=== PATIENT | male | born 1990 | race Two or more races ===

== ENCOUNTER 2018-07-30 18:15 | Emergency (ER) | payer SELFPAY ==
--- NOTE | 2018-07-30 18:51 | EDM.PDOC ---
ED HPI GENERAL MEDICAL PROBLEM - General Chief Complaint: Skin Complaint Stated Complaint: INFECTED CUT Time Seen by Provider: 07/30/18 18:20 Source of Information: Reports: Patient History Limitations: Reports: No Limitations - History of Present Illness INITIAL COMMENTS - FREE TEXT/NARRATIVE: HISTORY AND PHYSICAL: History of present illness: Patient is a 28-year-old male who presents to the emergency room with concerns of an infection at a puncture wound to his right index finger. He states the puncture wound occurred approximately 2 weeks ago. Since that time the area appears erythematous and with the appearance that can be drained. He states he has been trying to express drainage out from the site himself, unsuccessful. Tetanus has been updated within the last 5 years. Patient denies any fever, chills, headache, change in vision, syncope or near syncope. Denies any chest pain, back pain, shortness of breath or cough. Denies any abdominal pain, nausea , vomiting, diarrhea, constipation or dysuria. Patient has been eating and drinking appropriately. Review of systems: As per history of present illness and below otherwise all systems reviewed and negative. Past medical history: As per history of present illness and as reviewed below otherwise noncontributory. Surgical history: As per history of present illness and as reviewed below otherwise noncontributory. Social history: See social history for further information Family history: As per history of present illness and as reviewed below otherwise noncontributory. Physical exam: General: Well-developed and well-nourished 28-year-old male. Alert and oriented. Nontoxic appearing and in no acute distress. HEENT: Atraumatic, normocephalic, pupils equal and reactive bilaterally, negative for conjunctival pallor or scleral icterus, mucous membranes moist, trachea midline. No drooling or trismus noted. No meningeal signs. No hot potato voice noted. Lungs: Clear to auscultation, breath sounds equal bilaterally, chest nontender. Heart: S1S2, regular rate and rhythm without overt murmur Abdomen: Soft, nondistended, nontender. Skin: Small localized area of erythema to the right index finger approximately 6 mm. Nonfluctuant. Otherwise skin is intact, warm, dry. No lesions or rashes noted. Extremities: Atraumatic, moves all extremities per self without difficulty or deficits, negative for cords or calf pain. Neurovascular unremarkable. Neuro: Awake, alert, oriented. Cranial nerves II through XII unremarkable. Cerebellum unremarkable. Motor and sensory unremarkable throughout. Exam nonfocal. Notes: Supportive care measures were reviewed and discussed. Voices understanding and is agreeable to plan of care. Denies any further questions or concerns at this time. Diagnostics: None Therapeutics: None Prescription: Keflex Impression: Localized skin infection Plan: 1. Keep the skin clean and dry. Continue to monitor for signs of improvement. 2. Take your antibiotic as prescribed. Tylenol and/or ibuprofen as needed for pain management. 3. Follow-up with your primary caregiver as we discussed. Return to the ED as needed and as discussed. Definitive disposition and diagnosis as appropriate pending reevaluation and review of above. - Related Data Allergies Allergy/AdvReac Type Severity Reaction Status Date / Time No Known Allergies Allergy Verified 07/30/18 18:26 Home Meds: Home Meds cephALEXin [Keflex] 500 mg PO BID 5 Days #10 cap 07/30/18 [Rx] Past Medical History - Past Health History Medical/Surgical History: Denies Medical/Surgical History - Infectious Disease History Infectious Disease History: Reports: Chicken Pox Social & Family History - Family History Family Medical History: Noncontributory - Tobacco Use Smoking Status *Q: Never Smoker - Recreational Drug Use Recreational Drug Use: No ED ROS GENERAL - Review of Systems Review Of Systems: ROS reveals no pertinent complaints other than HPI. ED EXAM, SKIN/RASH Exam: See Below (See dictation) Course - Vital Signs Last Recorded V/S: Last Vital Signs Temp 97.6 F 07/30/18 18:24 Pulse 70 07/30/18 19:03 Resp 18 07/30/18 19:03 BP 129/74 07/30/18 19:03 Pulse Ox 98 07/30/18 19:03 Departure - Departure Time of Disposition: 18:51 Disposition: Home, Self-Care 01 Clinical Impression: Localized infection of skin - Discharge Information Prescriptions: cephALEXin [Keflex] 500 mg PO BID 5 Days #10 cap Instructions: Cellulitis, Adult Referrals: PCP,None [Primary Care Provider] - Forms: ED Department Discharge Additional Instructions: The following information is given to patients seen in the emergency department who are being discharged to home. This information is to outline your options for follow-up care. We provide all patients seen in our emergency department with a follow-up referral. The need for follow-up, as well as the timing and circumstances, are variable depending upon the specifics of your emergency department visit. If you don't have a primary care physician on staff, we will provide you with a referral. We always advise you to contact your personal physician following an emergency department visit to inform them of the circumstance of the visit and for follow-up with them and/or the need for any referrals to a consulting specialist. The emergency department will also refer you to a specialist when appropriate. This referral assures that you have the opportunity for follow-up care with a specialist. All of these measure are taken in an effort to provide you with optimal care, which includes your follow-up. Under all circumstances we always encourage you to contact your private physician who remains a resource for coordinating your care. When calling for follow-up care, please make the office aware that this follow-up is from your recent emergency room visit. If for any reason you are refused follow-up, please contact the [facility] Emergency Department at and asked to speak to the emergency department charge nurse. [facility] [address] [place] [address] [place] [address] 1. Keep the skin clean and dry. Continue to monitor for signs of improvement. 2. Take your antibiotic as prescribed. Tylenol and/or ibuprofen as needed for pain management. 3. Follow-up with your primary caregiver as we discussed. Return to the ED as needed and as discussed.
== END 2018-07-30 19:03 | disposition home or self-care (01) ==
LOC: MW.ED 18:15
DX: L08.9 Local infection of the skin and subcutaneous tissue, unspecified (principal)
CPT/HCPCS: 99282; 99283

== ENCOUNTER 2022-01-16 14:56 | Emergency (ER) | payer BC | END 2022-01-16 16:33 | disposition left against medical advice (07) | LOC: MW.ED 14:56 | DX: Z53.21 Procedure and treatment not carried out due to patient leaving prior to being seen by health care provider (principal) ==

== ENCOUNTER 2022-03-08 20:03 | Emergency (ER) | payer BC ==
[2022-03-08] MEDS ORDERED: Ketorolac 30 MG/ML SDV IM STA (20:14)
[2022-03-08] MEDS ORDERED: oxyCODONE 5 MG Tab PO ONE (20:17)
[2022-03-08] MEDS ORDERED: Ketorolac 30 MG/ML SDV IVPUSH ONE ×2 (20:33→22:21)
[2022-03-08 20:57] LABS: POTASSIUM,K 3.6 mmol/L (3.5-5.1)
[2022-03-08] MEDS ORDERED: Iopamidol 755 MG/ML 500 ML Multipack Bottle IVPUSH STA (21:26)
[2022-03-08] MEDS ORDERED: Orphenadrine 60 MG/2 ML Inj IM ONE (22:21)
[2022-03-08 23:29] LABS: C. TRACHOMATIS BY PCR NOT DETECTED; N. GONORRHOEAE BY PCR NOT DETECTED
== END 2022-03-08 23:43 | disposition home or self-care (01) ==
LOC: MW.ED 20:03
DX: N50.811 Right testicular pain (principal); R10.31 Right lower quadrant pain
CPT/HCPCS: 36415; 74177; 76870; 80053; 81003; 85025; 87491; 87591; 93976; 96372; 96374; 96376; 99284; A9270; J1885; J2360; Q9967

== ENCOUNTER 2022-08-20 20:24 | Emergency (ER) | payer BC ==
[2022-08-20 21:38] LABS: APPEARANCE,URINE CLEAR; BILIRUBIN,URINE NEGATIVE (NEGATIVE); COLOR,URINE YELLOW; GLUCOSE,URINE 100 mg/dL (NEGATIVE); KETONES,URINE NEGATIVE (NEGATIVE); LEUKOCYTE ESTERASE,URINE NEGATIVE (NEGATIVE); NITRITE,URINE POSITIVE (NEGATIVE); OCCULT BLOOD,URINE NEGATIVE (NEGATIVE); PH,URINE 6.5 (5.0-8.0); PROTEIN,URINE TRACE mg/dL (NEGATIVE)
[2022-08-20 21:49] LABS: RBC,URINE 0-5 (0-2/HPF); WBC,URINE 0-2 (0-5/HPF)
[2022-08-20 21:50] LABS: AMORPHOUS SEDIMENT,URINE OCCASIONAL (NEGATIVE); BACTERIA,URINE FEW (NEGATIVE); EPITHELIAL CELLS,URINE RARE (NONE-FEW); MUCUS,URINE FEW (NONE-MOD); SQUAMOUS EPITHELIAL CELLS,UR RARE
[2022-08-20] MEDS ORDERED: cefTRIAXone 500 MG in Lidocaine 1% 1 ML IM ONE (22:28)
[2022-08-20] MEDS ORDERED: Doxycycline 100 MG Cap PO ONE (22:29)
[2022-08-20 23:09] LABS: C. TRACHOMATIS BY PCR NOT DETECTED; N. GONORRHOEAE BY PCR NOT DETECTED
== END 2022-08-20 22:43 | disposition home or self-care (01) ==
LOC: MW.ED 20:24
DX: R30.0 Dysuria (principal)
CPT/HCPCS: 81001; 87086; 87491; 87591; 96372; 99283; A9270; J0696; J3490